=== PATIENT | female | born 1990 | race Caucasian/White ===

== ENCOUNTER 2021-04-25 02:15 | Day surgery (SDC) | payer OTHER, SELFPAY ==
[2021-04-13 13:02] VITALS: BMI 38.6
--- NOTE | 2021-04-13 13:14 | PC.NURSE ---
Report to the Outpatient Waiting Room, entrance under the green pavilion located off [facility], at time 0700 on date 04/25/21. OR Time: 0900. - You and your visitor will be asked a series of questions to screen for COVID 19 for your protection. - A mask is required within the hospital. - Only one visitor is allowed at this time. Patient visitors will be guided where to wait when not with patient. Preoperative COVID Testing Requirements: No COVID Test needed if: (proof is required; if not received patient will have Rapid Test prior to entry) - Patient has received COVID Vaccine at least 14 days prior to procedure date or - Patient has positive COVID test result within last 90 days of surgery date. COVID Test needed if above criteria is not met If not COVID vaccinated a COVID test must be conducted within 72 hours of surgery and patient is asked to isolate self from time of testing until procedure. You will go to the [employer] [facility] for your COVID testing. The [employer] [facility] is located at the corner of [address] [facility]. You will only be called if COVID results are positive and your surgeon may reschedule your elective surgery date. Patients may have clear liquids (water, carbonated beverages, clear teas, apple juice) until 3 hours prior to surgery with a maximum of 20 ounces. - No food from midnight until time of surgery - Infants may have breast milk until 4 hours before surgery, infant formula 6 hours prior to surgery. - Children will be allowed to drink immediately following surgery. If applicable, please bring a bottle or sippy cup to assist with drinking. Juice, water, soda, and popsicles are readily available. For infants on formula, please bring formula the day of surgery. Pacifiers are allowed. Take the following medications with a SIP of water the morning of surgery: Z-PACK AND PREDNISONE (IF STILL TAKING) Medications to discontinue per physician: N/A Date to take last dose: N/A Please no make-up, nail omani, hairspray, perfume, deodorant, or body powder the day of surgery. No jewelry (including any body piercings) or valuables the day of surgery, leave them at home. Please take a shower or bath the night before, or the morning of, surgery with an antibacterial soap. Wear comfortable, loose fitting clothing. Children are encouraged to wear pajamas. - Jewelry must be removed prior to entering the operating room. Rings and piercings that are not removed may be cut off. - The hospital will not accept responsibility for valuables. - Please leave all valuables, including medications, at home the day of surgery. If you are going home after surgery, a licensed inventory associate and driver must drive you home. - NO public transportation without another adult. - We recommend that an adult stay with you for 24 hours following discharge. - We also recommend that you do not drive, make important decision, drink alcoholic beverages, or take any drugs that were not prescribed by your health care provider for at least 24 hours after your discharge time. For Pediatric surgeries, we recommend two adults accompany the child home (only one inside the building at this time). Follow any additional instructions given to you from your surgeon. Telephone instructions given to PUJA CARMEN) and asked if any additional questions and then verbalized understanding. Patient advised to call surgeon office or pre surgery nurse liaison [phone] if any additional questions.
--- NOTE | 2021-04-25 07:13 | WPDHPUPDATE1 ---
History and Physical Update Update Date/Time: 04/25/21 07:13 History and Physical has been reviewed, including an updated exam of the patient. There are NO changes in the patient's condition. Risks, benefits, and alternatives have been discussed and questions answered. Patient agrees to proceed with procedure.
--- NOTE | 2021-04-25 07:14 | PM.HPGS ---
History of Present Illness History of Present Illness Consent: Risks, benefits, and alternatives have been discussed and questions answered. Patient agrees to proceed with procedure. Chief complaint: abnormal uterine bleeding Narrative: Manju Nicole is a 30 year old female with persistent daily bleeding. Patient underwent ultrasound which revealed the lining to be 14mm without lesions. It was recommended to proceed with workup including biopsy. Patient chose to proceed in the operating room with D&C hysteroscopy. Risks of infection, bleeding, perforation, and possible pathology were reviewed. Patient voiced understanding and agrees to proceed. Review of Systems Review of Systems: not repeated day of surgery; patient states no changes in status [facility] Past Medical History Medical History (Updated 04/25/21 @ 07:16 by Carley Anderson MD) PCOS (polycystic ovarian syndrome) Social History Social History Smoking status: Never smoker Alcohol intake: never Substance use: never Substance use type: does not use Living arrangements: with family Spiritual care concerns: No Meds Home Medications and Allergies Home Medications Medication Instructions Recorded Confirmed Type azithromycin [Zithromax Z-Randall] 250 mg PO DAILY 04/13/21 04/13/21 History prednisone 5 mg PO BID 04/13/21 04/13/21 History spironolactone 100 mg PO BID 04/13/21 04/13/21 History Allergies Allergy/AdvReac Type Severity Reaction Status Date / Time Penicillins Allergy Rash Verified 04/13/21 12:56 Exam Narrative: Weight 264 lb with a BMI of 39.0 Const: General: healthy appearing and alert Orientation/consciousness: patient oriented x3 Resp: Effort & Inspection: normal respiratory effort Auscultation: clear to auscultation bilaterally Cardio: Rate: regular rate Rhythm: regular rhythm GI: GI Palp: Yes Soft to palpation, No Tenderness to palpation present (GI) and No Palpable mass present : External Female Exam: normal external appearance Speculum Exam - Vagina: normal appearance of the vagina and normal vaginal discharge Speculum Exam - Cervix: normal appearance of the cervix Bimanual exam- vagina & uterus: uterine size normal and consistency normal Bimanual Exam- Adnexa, other: normal adnexae and No adnexal tenderness Neuro: General: patient oriented x3 Assessment and Plan Assessment and plan (1) Menorrhagia: Code(s): N92.0 - Excessive and frequent menstruation with regular cycle Status: Acute Assessment and Plan: Plan is to proceed with D&C hysteroscopy
[2021-04-25] MEDS: ACETAMINOPHEN 500 MG TABLET 1000 MG PO (07:55)
--- NOTE | 2021-04-25 08:03 | P.PNAN_ITS ---
Anes - Initial Pre Proc Eval Procedure: Operation Date: 04/25/21 09:00 Proposed Procedures p Hysteroscopy Dilation and Curettage - Carley Anderson MD Date/Time: 04/25/21 08:03 Surgeon: Carley Anderson MD Pre Op Diagnosis: abnormal uterine bleeding Patient Data Age: 30 Gender: F Height: 1.74 m Weight: 117 kg Allergies Allergy/AdvReac Type Severity Reaction Status Date / Time Penicillins Allergy Rash Verified 04/25/21 07:51 Home Medications Medication Instructions Recorded Confirmed Type azithromycin [Zithromax Z-Randall] 250 mg PO DAILY 04/13/21 04/13/21 History prednisone 5 mg PO BID 04/13/21 04/13/21 History spironolactone 100 mg PO BID 04/13/21 04/25/21 History Patient hx anesthesia problems: none Family hx anesthesia problems: none Results Review: All pre-operative results and documents have been reviewed as part of the pre-operative evaluation. [facility] Past Medical History Medical History PCOS (polycystic ovarian syndrome) Social History Social History Smoking status: Never smoker Alcohol intake: never Substance use: never Substance use type: does not use Living arrangements: with family Spiritual care concerns: No Anes - Eval Final PreProcedure Day of Procedure 04/25/21 08:03 Patient weight: obese Heart: regular rate and rhythm Lungs: clear to auscultation Airway: Mallampati scale class II Neurological: alert and oriented Last oral intake: >/= 8 hours ASA classification: II Emergent: no Anesthetic plan: proceed Anesthesia type and monitoring: general GIVS and standard monitoring Results Review: All pre-operative results and documents have been reviewed as part of the pre-operative evaluation. Informed Consent: The patient's anesthetic plan and its attendant risks and benefits were discussed with the patient/family/POA. Questions were solicited and answers provided to the satisfaction of the patient/family/POA.
[2021-04-25 08:07] VITALS: BP 117/61; PULSE 72; RESP 16; TEMP 36.7; O2SAT 100; BMI 39.2
[2021-04-25] MEDS: LACTATED RINGERS 1,000 ML 30 ML IV CONT (08:09)
[2021-04-25] MEDS: KETOROLAC 30 MG/ML VIAL (*BKC) IV PUSH (09:03)
--- NOTE | 2021-04-25 09:25 | W.PM.PROC2 ---
Procedure Note - Detailed Date of Procedure 04/25/21 Pre-op Diagnosis abnormal uterine bleeding Post-op Diagnosis same Procedure Performed D and C hysteroscopy Surgeon Carley Anderson MD Anesthesia MAC and local Findings Uterus sounds to 8cm and appears grossly normal Description of Procedure The patient is taken to the operating room and placed under anesthesia in the dorsal lithotomy position. She was prepped and draped in the usual sterile fashion. [place] speculum was placed in the vagina and the cervix is grasped on the anterior lip with a tenaculum. The uterus is sounded to 8cm. The cervix is serially dilated to an 8 [place]. The diagnostic hysteroscope is placed with no abnormalities noted. The hysteroscope was removed and the medium sharp curette used to curette the endometrium until a good uterine cry was noted in all areas. All instruments are removed. Patient is awakened from anesthesia and taken to recovery in stable condition. Sponge, needle, and instrument counts are correct per the OR staff. Estimated Blood Loss 5 Drains No Packing No Pathology yes (Endometrial curettings) Complications No immediate complications Condition stable Disposition PACU
[2021-04-25 09:27] VITALS: BP 121/74; PULSE 80; RESP 12; O2SAT 92
[2021-04-25] MEDS: oxyCODONE HCL (*CRX) 5 MG TAB IR PO (09:59)
[2021-04-25 10:00] VITALS: BP 137/80; PULSE 67
[2021-04-25 10:30] VITALS: BP 135/73; PULSE 54
== END 2021-04-25 10:40 | disposition home or self-care (01) ==
PROVIDERS: PCP Family Medicine; Visit Provider Obstetrics & Gynecology Gynecology
PROC: 0U5B8ZZ Destruction of Endometrium, Via Natural or Artificial Opening Endoscopic (ICD-10-PCS; CPT 58563; principal; 2021-04-25 09:00)
DX: N93.9 Abnormal uterine and vaginal bleeding, unspecified (principal); E28.2 Polycystic ovarian syndrome; E66.9 Obesity, unspecified; Z68.39 Body mass index [BMI] 39.0-39.9, adult
CPT/HCPCS: 58558; 88305; A9270; J1100; J1885; J2250; J2405; J2704; J3010; J7030; J7120

== ENCOUNTER 2022-05-03 12:19 | Outpatient (CLI) | payer OTHER, SELFPAY ==
--- NOTE | ~2022-05-03 | CT_ITS ---
EXAMINATION: CT sinus wo con DATE: 05/03/2022 12:45 INDICATION: Chronic sinusitis TECHNIQUE: Computed tomography (CT) of the paranasal sinuses was performed without contrast. Iterativ e reconstruction technique was employed. Exam dose: 258.77 mGy-cm total exam DLP. COMPARISON: None FINDINGS: There is rightward bowing of the nasal septum. The left ostiomeatal units are partially occluded by soft tissue thickening of the maxillary ostium a nd infundibulum. The right ostiomeatal unit is patent. There is prominent soft tissue swelling in the mid to upper medial left nasal cavity, continuing to t he mid and posterior left ethmoid air cells. There is mild patchy soft tissue thickening of the remai nder of the ethmoid air cells bilaterally. There is mild mucoperiosteal thickening of the inferomedial right frontal sinus. The left frontal sin us is well-developed and aerated. Very small mucus retention cyst along the lateral wall of the right maxillary antrum and minimal muco periosteal thickening of the medial wall and inferior aspect of the left maxillary sinus. There is mild to moderate mucoperiosteal thickening of the left sphenoid sinus. The right sphenoid si nus is clear. There is partial opacification of mastoid air cells bilaterally. IMPRESSION: Prominent soft tissue thickening in the mid to upper medial left nasal cavity extending into the completely opacified mid and posterior left ethmoids Mild inferomedial right frontal mucoperiosteal thickening, minimal bilateral maxillary sinus and mild to moderate left sphenoid sinus mucoperiosteal thickening Partial opacification of left ostiomeatal unit Rightward bowing of nasal septum Reviewed, dictated and finalized at [facility]. Reviewed, dictated and finalized at [facility]. [employer] MACHINE [employer]PER[employer]IC IMPRESSION: Prominent soft tissue thickening in the mid to upper medial left n nikki cavity extending into the completely opacified mid and posterior left ethm oids Mild inferomedial right frontal mucoperiosteal thickening, minimal bilateral ma xillary sinus and mild to moderate left sphenoid sinus mucoperiosteal thickenin g Partial opacification of left ostiomeatal unit Rightward bowing of nasal septum
== END 2022-05-03 12:20 ==
PROVIDERS: PCP Family Medicine; Visit Provider Otolaryngology
DX: J32.9 Chronic sinusitis, unspecified (principal)
CPT/HCPCS: 70486

== ENCOUNTER 2022-08-08 12:10 | Outpatient (CLI) | payer OTHER, SELFPAY ==
--- NOTE | ~2022-08-08 | XR_ITS ---
EXAMINATION: XR hysterosalpingogram DATE: 08/08/2022 12:45 INDICATION: Infertility. TECHNIQUE: Fluoroscopy was performed by the radiologist during contrast infusion into the endometrial cavity of the uterus by the primary physician. Fluoroscopy exposure time was 0.2 minutes. The total number of images was 5. FINDINGS: The intrauterine cavity is normal in morphology. The fallopian tubes are normal in caliber. There is normal free intraperitoneal spillage of contrast on either side. IMPRESSION: 1. Normal hysterosalpingogram. Reviewed, dictated and finalized at location [facility].
== END 2022-08-08 12:11 | disposition home or self-care (01) ==
PROVIDERS: PCP Family Medicine; Visit Provider Obstetrics & Gynecology Gynecology
DX: Z31.49 Encounter for other procreative investigation and testing (principal)
CPT/HCPCS: 58340; 74740; Q9966